=== PATIENT | male | born 1955 | race Caucasian/White ===

== ENCOUNTER → 2017-07-28 | Outpatient (CLI) | payer OTHER ==
--- NOTE | 2017-07-28 11:07 | TR ---
Date Performed: 07/28/2017 Time Performed: 10:06:18 DOCTOR: Jerrell Melo DRUG LIST: CLINICAL HISTORY: REASON FOR TEST: REASON FOR ENDING: OBSERVATION: CONCLUSION: ANDERSON PROTOCOL. NO CP OR SOB.Maximum HH=548 Maximum YC=615/78 Total Exercise Time=11 :59 COMMENTS: Conclusion: Normal treadmill exercise. No evidence of ischemia.
== END ==
LOC: HCAV 09:33
PROVIDERS: ATTEND Family Medicine
DX: Z82.49 Family history of ischemic heart disease and other diseases of the circulatory system (principal)
CPT/HCPCS: 93017